=== PATIENT | female | born 1990 | race African-American/Black ===

== ENCOUNTER 2022-06-13 16:48 | Emergency (ER) | payer SELFPAY ==
[~2022-06-13] VITALS: Ht 170.2 cm; Wt 100.0 kg
[2022-06-13 18:09] VITALS: BP 142/86
== END 2022-06-13 22:16 | disposition home or self-care (01) ==
LOC: ER 16:48
DX: F12.10 Cannabis abuse, uncomplicated (principal); I95.9 Hypotension, unspecified; R11.0 Nausea; F41.9 Anxiety disorder, unspecified
CPT/HCPCS: 82962; 93005; 99283